=== PATIENT | female | born 1975 | race Caucasian/White ===

== ENCOUNTER → 2016-12-12 | Outpatient (CLI) | payer BC ==
[~2016-12-12] MED LIST: ACHD5005 PO; ACHYD1T PO; AMLO2.5T PO; ASPI-266 PO; CEPH-38 PO; DCS100C PO; HYDR-3720 PO; Hydrocodone Bit/Acetaminophen PO; IBP600T1 PO; IBP800T PO; LABETALOL PO; NITR100C3 PO; OXYC-12 PO; PHEN200T27 PO; PNV1TABL9 PO; PREN1TAB71 PO; [UNRECOGNIZED DRUG - REMARK]
--- NOTE | 2016-12-15 18:53 | Diagnostic Imaging Report ---
Bilateral screening mammogram 2D views with tomosynthesis. The current study was also evaluated with a Computer Aided Detection (CAD) system. INDICATION: Screening. No current complaints stated on the questionnaire. COMPARISON: None. This is a baseline study. FINDINGS: The breasts are composed of scattered fibroglandular densities. There is no mass, architectural distortion, or suspicious cluster of calcifications. Tomographic images demonstrate no definite abnormality. IMPRESSION: No mammographic evidence of malignancy. ACR BI-RADS Category 2: Benign findings. Result letter will be mailed to the patient. Note: At least 10% of breast cancer is not imaged by mammography. Dictated by: Dictated on workstation # [id number]
== END ==
LOC: RAD 12:59
PROVIDERS: ATTEND Obstetrics & Gynecology
DX: Z12.31 Encounter for screening mammogram for malignant neoplasm of breast (principal)
CPT/HCPCS: 77067

== ENCOUNTER → 2017-12-15 | Outpatient (CLI) | payer BC ==
--- NOTE | 2017-12-15 13:43 | Diagnostic Imaging Report ---
INDICATION: Routine screening. COMPARISON: 12/12/2016. TECHNIQUE: 2D and 3D bilateral screening mammography was performed with CAD. FINDINGS: Scattered fibroglandular densities are identified bilaterally. The parenchymal pattern is stable. No dominant mass or malignant appearing microcalcifications are seen. There are benign calcifications present. The axillae are unremarkable. IMPRESSION: No mammographic features suspicious for malignancy are identified. ACR BI-RADS Category 2: Benign findings. Result letter will be mailed to the patient. Note: At least 10% of breast cancer is not imaged by mammography. Dictated by: Dictated on workstation # [id number]
== END ==
LOC: RAD 08:59
PROVIDERS: ATTEND Nurse Practitioner
DX: Z12.31 Encounter for screening mammogram for malignant neoplasm of breast (principal)
CPT/HCPCS: 77067

== ENCOUNTER → 2018-12-31 | Outpatient (CLI) | payer BC ==
--- NOTE | 2018-12-31 14:09 | Diagnostic Imaging Report ---
INDICATION: Routine screening. COMPARISON is made with prior mammograms of 12/15/2017 and 12/12/2016. TECHNIQUE: 2-D and 3-D bilateral screening mammography was performed with CAD. FINDINGS: Scattered fibroglandular densities are identified bilaterally. The parenchymal pattern is stable. No mass or malignant appearing microcalcifications are seen. Occasional benign calcifications are noted. The axillae are unremarkable. IMPRESSION: BI-RADS Category 2. No mammographic features suspicious for malignancy are identified. ACR BI-RADS Category 2: Benign findings. Result letter will be mailed to the patient. Note: At least 10% of breast cancer is not imaged by mammography. Dictated by: Dictated on workstation # [id number]
== END ==
LOC: RAD 09:43
PROVIDERS: ATTEND Obstetrics & Gynecology
DX: Z12.31 Encounter for screening mammogram for malignant neoplasm of breast (principal)
CPT/HCPCS: 77067

== ENCOUNTER → 2020-01-04 | Outpatient (CLI) | payer BC ==
--- NOTE | 2020-01-04 12:27 | Diagnostic Imaging Report ---
INDICATION: Routine screening. COMPARISON: 12/31/2018 and 12/15/2017. TECHNIQUE: 2D and 3D bilateral screening mammography was performed with CAD. FINDINGS: Scattered fibroglandular densities are identified bilaterally. The parenchymal pattern is stable. No mass or malignant appearing microcalcifications are seen. The axillae are unremarkable. IMPRESSION: No mammographic features suspicious for malignancy are identified. ACR BI-RADS Category 1: Negative. Result letter will be mailed to the patient. Note: At least 10% of breast cancer is not imaged by mammography. Dictated by: Dictated on workstation # [id number]
== END ==
LOC: RAD 09:45
PROVIDERS: ATTEND Obstetrics & Gynecology
DX: Z12.31 Encounter for screening mammogram for malignant neoplasm of breast (principal)
CPT/HCPCS: 77063; 77067

== ENCOUNTER → 2021-01-04 | Outpatient (CLI) | payer BC ==
--- NOTE | 2021-01-07 08:41 | Diagnostic Imaging Report ---
INDICATION: Routine screening. Comparison is made with prior mammogram 01/04/2020 and 12/31/2018. 2-D and 3-D bilateral screening mammography was performed with CAD. Scattered fibroglandular densities are identified bilaterally. The parenchymal pattern is stable. No mass or malignant-appearing microcalcifications are seen. Axillae are unremarkable. IMPRESSION: BI-RADS Category 1 No mammographic features suspicious for malignancy are identified. ACR BI-RADS Category 1: Negative. Result letter will be mailed to the patient. Note: At least 10% of breast cancer is not imaged by mammography. Dictated by: Dictated on workstation # [id number]
== END ==
LOC: RAD 07:34
PROVIDERS: ATTEND Obstetrics & Gynecology
DX: Z12.31 Encounter for screening mammogram for malignant neoplasm of breast (principal)
CPT/HCPCS: 77063; 77067

== ENCOUNTER → 2021-04-01 | Outpatient (CLI) | payer BC ==
--- NOTE | 2021-04-01 13:35 | Diagnostic Imaging Report ---
INDICATION: Generalized abdominal pain PROCEDURE: Ultrasound abdomen complete. TECHNIQUE: Multiple real-time grayscale images were obtained of the abdomen in various projections. COMPARISON: CT from 12/15/2013 FINDINGS: Imaged portions of the aorta are unremarkable. Imaged portions of the pancreas appear normal although the tail is obscured by bowel gas. Visible portions of the IVC appear normal. The liver has a hypoechoic lesion on the right measuring 2.5 x 2.3 x 3.1 cm. There is no biliary dilatation. Overall echogenicity appears mildly increased relative to the kidney. The liver is normal in size. The main portal vein is hepatopetal. The gallbladder wall is not thickened. There is a shadowing stone seen at the gallbladder neck which measures about 1 cm in size. The common bile duct measures 2 mm in diameter. Limon sign is negative. No free fluid is seen. The right kidney measures 10.8 cm in length and appears normal with no hydronephrosis. The left kidney measures 12.3 cm in length and also demonstrates no hydronephrosis and no masses. The spleen is normal. IMPRESSION: 1. Hypoechoic lesion in the right liver, may actually represent fatty sparing underlying diffuse fatty infiltration of the liver. Nonemergent MRI could be considered to further evaluate. 2. Cholelithiasis without findings of cholecystitis. Dictated by: Dictated on workstation # [id number]
== END ==
LOC: RAD 09:45
PROVIDERS: ATTEND Internal Medicine
DX: K80.20 Calculus of gallbladder without cholecystitis without obstruction (principal); K76.9 Liver disease, unspecified
CPT/HCPCS: 76700

== ENCOUNTER 2021-04-17 05:40 | Outpatient (CLI) | payer BC ==
[~2021-04-17] VITALS: Ht 162.6 cm; Wt 95.4 kg
[2021-04-17] MEDS ORDERED: TRIAM PO (13:27)
[2021-04-17] MEDS ORDERED: AMLO-250 PO (13:27)
[2021-04-17] MEDS ORDERED: LEVO75CA5 PO (13:29)
[2021-04-17] MEDS ORDERED: TRIA1CAP4 PO (13:34)
== END 2021-04-17 13:47 | disposition home or self-care (01) ==
LOC: PREOP 05:40
PROVIDERS: ATTEND Surgery
DX: Z01.818 Encounter for other preprocedural examination (principal)

== ENCOUNTER 2021-04-24 06:14 | Day surgery (SDC) | payer BC ==
[~2021-04-24] VITALS: Ht 162 cm; Wt 95.4 kg
[2021-04-24] VITALS (10 sets, daily range): BP systolic 94–117; BP diastolic 59–84
[~2021-04-24 06:14] MED LIST changes: +AMLO-250 PO; +LEVO75CA5 PO; +TRIA1CAP4 PO; +TRIAM PO
[2021-04-24] MEDS ORDERED: ceFAZolin 2 GM IV Premixed 50 ML IV ONE (06:30)
[2021-04-24] MEDS: LACTATED RINGERS 1,000 ML IV PRN ×2 (06:44→09:11)
[2021-04-24] MEDS ORDERED: proPOfol 200 MG/20 ML (DIPRIVAN) VIAL IV ONE (06:57)
[2021-04-24] MEDS ORDERED: ROCURONIUM 50 MG/5 ML (ZEMURON) VIAL IV ONE (06:57)
[2021-04-24] MEDS ORDERED: ONDANSETRON 4 MG/2 ML (SDV) Z0FRAN ONE ×2 (06:57→09:25)
[2021-04-24] MEDS ORDERED: LIDOCAINE PF 2% 5 ML (XYLOCAINE) VIAL ONE (06:57)
[2021-04-24] MEDS ORDERED: MIDAZOLAM 2 MG/2 ML (VERSED) VIAL ONE (06:58)
[2021-04-24] MEDS ORDERED: fentaNYL INJ 100 MCG/2 ML AMP ONE (06:58)
[2021-04-24] MEDS ORDERED: LIDOCAINE/EPI 1%-1:100,000 (XYLOCAINE) 20ML ONE (07:18)
--- NOTE | 2021-04-24 07:53 | Progress Note-Pre Operative ---
Pre-Operative Progress Note H&P Reviewed The H&P was reviewed, patient examined and no changes noted. Date Seen by Provider: Apr 24, 2021 Time Seen by Provider: 07:53 Date H&P Reviewed: Apr 24, 2021 Time H&P Reviewed: 07:53 Pre-Operative Diagnosis: ruq abd pain, cholelithiasis GAGANDEEP SAUL DO Apr 24, 2021 07:53
[2021-04-24] MEDS ORDERED: GLYCOPYRROLATE 0.2 MG/ML (ROBINUL) 2 ML VIAL ONE (08:46)
[2021-04-24] MEDS ORDERED: NEOSTIGMINE 3 MG/3 ML VIAL ONE (08:46)
--- NOTE | 2021-04-24 08:47 | Discharge Inst-Simple/Standard ---
Discharge Inst-Standard Discharge Medications New, Converted or Re-Newed RX: Transmitted to Pharmacy Patient Instructions/Follow Up Plan of Care/Instructions/FU: 2-3 weeks Devan Activity as Tolerated: No Discharge Diet: Regular Diet Other Inst to Patient Follow up Appt: Make appointment for 2-3 weeks. Instructions: No lifting greater than 10 pounds. No strenuous activity. May shower in 24 hours, no tub bath or soaking. Use incentive spirometer at home as directed. No Smoking Skin/Wound Care: You have special glue over incision, it will fall off on it's own. Symptoms to Report: Appetite Changes, Extremity Discoloration, Numbness/Tingling, Swelling Increased, Bleeding Excessive, Eyesight Changes, Pain Increased, Urine Color Change, Constipation(Persistent), Fever over 101 degree F, Pain/Pressure in chest, Urinating Difficulty, Cough Up/Vomit Blood, Heart Beat Irreg/Pounding, Pain/Pressure in jaw, Vaginal Bleeding Increase, Cramps in feet or legs, Lightheadedness, Pain/Pressure in shoulder, Diarrhea(Persistent), Memory Changes Suddenly, Questions/Concerns, Weight gain consecutive days, Dizziness/Fainting, Nausea/Vomiting, Shortness of Breath, Weight gain over 2 pounds. If eyes or skin turn yellow notify physician. If questions or concerns contact your physician Or seek help at emergency department. GAGANDEEP SAUL DO Apr 24, 2021 08:47
--- NOTE | 2021-04-24 08:48 | Progress Note-Post Operative ---
Post-Operative Progess Note Surgeon (s)/Insight Leader (s) Surgeon GAGANDEEP SAUL DO Insight Leader: Dr. Dan to assist in retraction dissection and closure. Pre-Operative Diagnosis ruq abd pain, cholelithiasis Post-Operative Diagnosis same Procedure & Operative Findings Date of Procedure 04/24/21 Procedure Performed/Findings PROCEDURE: Laparoscopic cholecystectomy with intraoperative cholangiogram. COMPLICATIONS: None. PROCEDURE: The patient was taken to the operating suite and was prepped and draped in sterile fashion. A surgical pause was performed. Just superior to the umbilicus, a 12 mm incision was made. Dissection was taken down to the fascia, which was then scored and grasped with a Afia and the abdomen was then entered. A 0 Vicryl suture was placed in a bizpsx-rr-mwhpx fashion and a Kennedy trocar was placed and secured. Pneumoperitoneum was achieved. A 5mm trochar place in the subxyphoid and 2 in the right upper quadrant. The gallbladder was then grasped and elevated. Adhesions taken off the gallbaldder. The cystic duct, and cystic artery were then dissected out. Clip was placed on the distal portion of the cystic duct which was then partially transected. An arrow catheter was inserted into the duct. The cholangiogram was then performed. No filing defects and contrast made its way into the duodenum. Catheter removed. Clips were placed on proximal portion of the cystic duct and then the duct was then transected. Clips were placed along the proximal and distal portion of the cystic artery which was then transected. Hook cautery was used to dissect the gallbladder from the gallbladder fossa achieving hemostasis. The gallbladder was placed in an Endobag and removed through the 12 mm trocar site. The abdomen was then reinspected. Copious amounts of irrigation were used to irrigate the abdomen and there were no signs of active bleeding. Hemostasis had been achieved. The 12 mm fascial defect was then closed with 0 Vicryl suture that had been placed in a [id number] fashion. The abdomen was then desufflated, the trocars were removed. The abdomen was then washed and dried. The skin was then closed using 4-0 Monocryl in a subcuticular fashion. The abdomen was washed and dried and Skin Affix was place over incisions. Patient tolerated the procedure well without any complications and was taken to the recovery room in stable condition. Anesthesia Type general Estimated Blood Loss Estimated blood loss (mL): minimal Specimens/Packing Specimens Removed gallbladder GAGANDEEP SAUL DO Apr 24, 2021 08:48
[2021-04-24] MEDS ORDERED: SEVOFLURANE (ULTANE) 15 ML INHAL SOLN ONE (08:53)
[2021-04-24] MEDS ORDERED: DOCU-143 PO (08:56)
[2021-04-24] MEDS ORDERED: ACHD5005 PO (08:56)
[2021-04-24] MEDS ORDERED: PROMETHAZINE INJ 25 MG/ML (PHENERGAN) AMP IVP ONE (09:00)
[2021-04-24] MEDS ORDERED: ONDANSETRON 4 MG/2 ML (SDV) Z0FRAN IVP PRN (09:00)
[2021-04-24] MEDS ORDERED: fentaNYL INJ 100 MCG/2 ML AMP IVP ONE (09:00)
[2021-04-24] MEDS ORDERED: MEPERIDINE (DEMEROL) INJ 50 MG/ML IVP ONE (09:00)
--- NOTE | 2021-04-24 09:15 | Diagnostic Imaging Report ---
INDICATION: Cholecystectomy. IMPRESSION: 5 seconds of fluoroscopy was used for the cholangiogram in Surgery. 21 images show normal filling of the common bile duct and major intrahepatic radicles. No constant filling defect is seen. There is flow of contrast into the duodenum. Dictated by: Dictated on workstation # [id number]
[2021-04-24] MEDS ORDERED: HYDROcodone/APAP 5 MG/325 MG (LORTAB) TAB PO ONE (09:45)
[2021-04-24] MEDS ORDERED: HYDROcodone/APAP 5 MG/325 MG (LORTAB) TAB ONE (09:45)
--- NOTE | 2021-04-24 09:48 | Anesthesia-General Post-Op ---
General Patient Condition Mental Status/LOC: Same as Preop Cardiovascular: Satisfactory Nausea/Vomiting: Absent Respiratory: Satisfactory Pain: Controlled Complications: Absent Post Op Complications Complications None Follow Up Care/Instructions Patient Instructions None needed. Anesthesia/Patient Condition Patient Condition Patient is doing well, no complaints, stable vital signs, no apparent adverse anesthesia problems. No complications reported per nursing. JASMINE IRELAND CRNA Apr 24, 2021 09:48
== END 2021-04-24 11:00 ==
LOC: SDC 06:14
PROVIDERS: ATTEND Surgery
DX: K80.10 Calculus of gallbladder with chronic cholecystitis without obstruction (principal); E03.9 Hypothyroidism, unspecified; I10 Essential (primary) hypertension; E66.9 Obesity, unspecified; Z68.36 Body mass index [BMI] 36.0-36.9, adult; Z87.891 Personal history of nicotine dependence; Z79.899 Other long term (current) drug therapy; Z79.890 Hormone replacement therapy
CPT/HCPCS: 76000; 84703; 87081; 88304; 94664

== ENCOUNTER 2021-08-12 05:35 | Outpatient (CLI) | payer BC ==
[~2021-08-12] VITALS: Ht 162.6 cm; Wt 95.3 kg
[~2021-08-12 05:35] MED LIST changes: +DOCU-143 PO
== END 2021-08-12 15:17 ==
LOC: PREOP 05:35
PROVIDERS: ATTEND Surgery
DX: Z01.818 Encounter for other preprocedural examination (principal)

== ENCOUNTER 2021-08-20 09:28 | Day surgery (SDC) | payer BC ==
[~2021-08-20] VITALS: Ht 163 cm; Wt 95.3 kg
[2021-08-20] MEDS ORDERED: LACTATED RINGERS 1,000 ML IV ONE (09:30)
[2021-08-20] MEDS ORDERED: LACTATED RINGERS 1,000 ML IV STA (09:32)
[2021-08-20 09:45] VITALS: BP 110/79
[2021-08-20] MEDS ORDERED: HURRICAINE EXT TUBE (BENZOCAINE) XX PRN (09:45)
[2021-08-20] MEDS ORDERED: PROPOFOL INJECTION 50 ML IV ONE (09:48)
--- NOTE | 2021-08-20 09:51 | Progress Note-Pre Operative ---
Pre-Operative Progress Note H&P Reviewed The H&P was reviewed, patient examined and no changes noted. Date Seen by Provider: Aug 20, 2021 Time Seen by Provider: 09:50 Date H&P Reviewed: Aug 20, 2021 Time H&P Reviewed: 09:50 Pre-Operative Diagnosis: screening colonoscopy GAGANDEEP SAUL DO Aug 20, 2021 09:51
--- NOTE | 2021-08-20 10:21 | Discharge Inst-Simple/Standard ---
Discharge Inst-Standard Patient Instructions/Follow Up Plan of Care/Instructions/FU: 2 weeks Devan Activity as Tolerated: Yes Discharge Diet: Regular Diet (high fiber diet) GAGANDEEP SAUL DO Aug 20, 2021 10:21
--- NOTE | 2021-08-20 10:22 | Anesthesia-General Post-Op ---
MAC Patient Condition Mental Status/LOC: Same as Preop Cardiovascular: Satisfactory Nausea/Vomiting: Absent Respiratory: Satisfactory Pain: Controlled Complications: Absent Post Op Complications Complications None Follow Up Care/Instructions Patient Instructions None needed. Anesthesiology Discharge Order Discharge Order Patient is doing well, no complaints, stable vital signs, no apparent adverse anesthesia problems. No complications reported per nursing. SARBJIT PEREIRA CRNA Aug 20, 2021 10:22
[2021-08-20 10:23] VITALS: BP 100/70
--- NOTE | 2021-08-20 10:42 | Progress Note-Post Operative ---
Post-Operative Progess Note Surgeon (s)/Tankroom Worker (s) Surgeon GAGANDEEP SAUL DO Tankroom Worker: na Pre-Operative Diagnosis screening colonoscopy Post-Operative Diagnosis sigmoid and rectal polyp, diverticulosis Procedure & Operative Findings Date of Procedure 08/20/21 Procedure Performed/Findings colonoscopy c hot bx polypectomy x 2 Anesthesia Type per floriculturist Estimated Blood Loss Estimated blood loss (mL): na Specimens/Packing Specimens Removed sigmoid and rectal polyp GAGANDEEP SAUL DO Aug 20, 2021 10:42
[2021-08-20 10:50] VITALS: BP 103/78
--- NOTE | 2021-08-20 13:42 | OPERATIVE REPORT ---
DATE OF SERVICE: 08/20/2021 PREOPERATIVE DIAGNOSIS: Screening colonoscopy. POSTOPERATIVE DIAGNOSIS: Sigmoid and rectal polyp, diverticulosis. PROCEDURE: Colonoscopy with hot biopsy polypectomy x2. SURGEON: Gagandeep Hartman DO ANESTHESIA: Per ATOMIC PHYSICS PROFESSOR. ESTIMATED BLOOD LOSS: None. COMPLICATIONS: None. INDICATIONS: The patient is a 46-year-old female needing screening colonoscopy. She understands risks and benefits of procedure and wished to proceed. Consent was signed in the chart. DESCRIPTION OF PROCEDURE: The patient was taken to the endoscopy suite, placed in left lateral recumbent position. Timeout was performed. Digital rectal exam was performed. No palpable polyps, masses or ulcerations. Scope was inserted in the rectum and advanced all the way to cecum with minimal difficulty. Prep was adequate. Scope was slowly retracted back. No polyps, masses or ulcerations within the cecum, ascending, transverse, descending colon; a minimal amount of diverticulosis in sigmoid colon. The sigmoid colon appears to be erythematous flat polyp, slightly raised, hot biopsy polypectomy was performed. Scope was then continuously retracted back into the rectum where another erythematous appearing polyps present, which hot biopsy polypectomy was performed. Scope was retroflexed noting no other pathology. Scope was returned to its normal position, slowly withdrawn until completely removed. The patient tolerated the procedure well without any complications. She was taken to recovery room in stable condition. RECOMMENDATIONS: The patient will need repeat colonoscopy in 5 years. Any issues before that be seen at that time. High fiber diet due to diverticulosis. Any problems before that be seen at that time. The patient will follow up in 2 weeks to discuss pathology results. Job ID: [id number] DocumentID: [id number] Dictated Date: 08/20/2021 10:43:16 Core Measures Abstractor Date: 08/20/2021 13:42:22 Dictated By: GAGANDEEP HARTMAN DO
== END 2021-08-20 10:57 | disposition home or self-care (01) ==
LOC: ENDO 09:28
PROVIDERS: ATTEND Surgery
DX: Z12.11 Encounter for screening for malignant neoplasm of colon (principal); K63.5 Polyp of colon; K62.1 Rectal polyp; K57.30 Diverticulosis of large intestine without perforation or abscess without bleeding; Z87.891 Personal history of nicotine dependence
CPT/HCPCS: 84703; 88305

== ENCOUNTER → 2022-01-20 | Outpatient (CLI) | payer BC ==
[~2022-01-20] MED LIST changes: -TRIA1CAP4 PO; +TRIA1CAP84 PO
--- NOTE | 2022-01-20 08:46 | Diagnostic Imaging Report ---
INDICATION: Routine screening. COMPARISON: 01/04/2021 and 01/04/2020. TECHNIQUE: 2D and 3D bilateral screening mammography was performed with CAD. FINDINGS: Scattered fibroglandular densities are identified bilaterally. The overall parenchymal pattern is stable. No dominant mass or malignant-appearing microcalcifications are seen. The axillae are unremarkable. IMPRESSION: No mammographic features suspicious for malignancy are identified. ACR BI-RADS Category 1: Negative. Result letter will be mailed to the patient. Note: At least 10% of breast cancer is not imaged by mammography. Dictated by: Dictated on workstation # [id number]
== END ==
LOC: RAD 07:30
PROVIDERS: ATTEND Nurse Practitioner Women's Health
DX: Z12.31 Encounter for screening mammogram for malignant neoplasm of breast (principal)
CPT/HCPCS: 77063; 77067

== ENCOUNTER 2022-05-21 08:42 | Outpatient (RCR) | payer BC | END 2022-05-31 | disposition home or self-care (01) | LOC: ONC 08:42 | PROVIDERS: ATTEND Internal Medicine Hematology & Oncology | DX: Z15.09 Genetic susceptibility to other malignant neoplasm (principal) | CPT/HCPCS: 99204 ==

== ENCOUNTER → 2023-02-06 | Outpatient (CLI) | payer BC ==
--- NOTE | 2023-02-06 11:26 | Diagnostic Imaging Report ---
Indication: Routine screening. Comparison is made with prior mammograms from 01/20/2022 and 01/04/2021. 2-D and 3-D bilateral screening mammography was performed with CAD. Scattered fibroglandular densities are identified bilaterally. The parenchymal pattern is stable. No mass or malignant-appearing microcalcifications are seen. Axillae are unremarkable. IMPRESSION: BI-RADS Category 1 No mammographic features suspicious for malignancy are identified. ACR BI-RADS Category 1: Negative. Result letter will be mailed to the patient. Note: At least 10% of breast cancer is not imaged by mammography. Dictated by: Dictated on workstation # [id number]
== END ==
LOC: RAD 07:17
PROVIDERS: ATTEND Nurse Practitioner Women's Health
DX: Z01.419 Encounter for gynecological examination (general) (routine) without abnormal findings (principal); Z12.31 Encounter for screening mammogram for malignant neoplasm of breast
CPT/HCPCS: 77063; 77067